=== PATIENT | female | born 1980 | race Caucasian/White ===

== ENCOUNTER → 2019-01-15 | Outpatient (CLI) | payer BC ==
--- NOTE | 2019-01-15 18:05 | MAM ---
EXAM DESCRIPTION: 3D Screening BILATERAL : Digital Mammography. CLINICAL HISTORY: 38 years Female SCREEN . No complaints or personal history of breast cancer. Remote family history of ovarian cancer. Childbirth. Premenopausal. No HRT. Lifetime risk of developing breast cancer (Tyrer-Cuzick model)(%): 7.3. COMPARISON: prior. No prior reports available. TECHNIQUE: Bilateral CC and MLO projection full-field images, digital tomosynthesis mammographic technique. Bilateral digital 2-D full-field MLO images. CAD not available for tomosynthesis or 2-D images. FINDINGS: The breast parenchymal density pattern is: Scattered areas of fibroglandular density. No skin thickening or nipple retraction. Focal asymmetry at the 9:30 position of the middle third of the left breast approximately 5 cm from the nipple. Focal asymmetry at the 9:30 position of the middle third of the right breast approximately 4 cm from the nipple. No microcalcifications associated with these findings. IMPRESSION: BI-RADS CATEGORY: 0 - INCOMPLETE- Need additional imaging evaluation. FOLLOW-UP: Recall for additional imaging: Bilateral targeted breast ultrasound of the region of interest. Optional diagnostic orthogonal tomosynthesis bilateral breast, depending on ultrasound findings.. Written communication concerning the IMPRESSION and Follow-up, will be mailed to the patient and referring health care provider. Electronically signed by: Rakan Dominguez MD 01/15/2019 6:02 PM CDT
== END ==
LOC: MAMMO 10:10
PROVIDERS: ATTEND Nurse Practitioner Family
DX: Z12.31 Encounter for screening mammogram for malignant neoplasm of breast (principal)

== ENCOUNTER → 2019-02-09 | Outpatient (CLI) | payer BC ==
--- NOTE | 2019-02-10 15:09 | US ---
EXAM DESCRIPTION: Breast,Bilateral: Ultrasound CLINICAL HISTORY: 38 yearsFemaleABNORMAL MAMMO. Bilateral regions of focal asymmetry in the breasts. COMPARISON: Bilateral screening digital breast tomosynthesis 01/15/2019. TECHNIQUE: Transcutaneous scanning of the bilateral breast utilizing olsen-scale modes. Scanning performed by the community outreach advocate ; observation by Dr. Dominguez. FINDINGS: Scanning of the right breast upper inner quadrant. Emphasis on the 9:30 position, 4 cm from the nipple. Mostly fatty echotexture with minimal fibroglandular elements. No dominant solid mass or distinct cyst. No parenchymal edema or large calcifications. No overlying skin changes. Scanning of the left breast upper inner quadrant. Emphasis on the 9:30 position, 5 cm from the nipple. Mostly fatty echotexture with minimal fibroglandular elements. No dominant solid mass or distinct cyst. No parenchymal edema or large calcifications. No overlying skin changes. IMPRESSION: Benign exam. BIRAD CATEGORY: 2 BENIGN FINDINGS. RECOMMENDATIONS: FOLLOW UP: Return to routine digital bilateral mammographic screening, one year interval from January 2019. Written communication explaining the IMPRESSION and follow-up, will be mailed to the patient and referring health care provider. The FINDINGS and the FOLLOW-UP plan were reviewed in person with the patient after the examination. According to the [employer], yearly mammograms are recommended starting at age 40 and continuing as long as a woman is in good health. Any breast change noted on a breast self-exam should be reported promptly to the patient's healthcare provider. Breast MRI is recommended for women with an approximately 20-25% or greater lifetime risk of breast cancer, including women with a strong family history of breast or ovarian cancer and women who have been treated for Hodgkin's disease. A negative mammographic report should not delay tissue diagnosis in patients with significant clinical history or physical findings. Extremely dense breast tissue limits the sensitivity of digital mammography. Electronically signed by: Rakan Dominguez MD 02/10/2019 3:06 PM CDT
== END ==
LOC: US 11:31
PROVIDERS: ATTEND Nurse Practitioner Family
DX: R92.8 Other abnormal and inconclusive findings on diagnostic imaging of breast (principal)

== ENCOUNTER 2020-01-14 | Emergency (ER) | payer BC | END 2020-01-14 09:07 | disposition short-term general hospital (02) | DX: I63.9 Cerebral infarction, unspecified (principal); H53.2 Diplopia; R42 Dizziness and giddiness; H81.4 Vertigo of central origin | CPT/HCPCS: 36415; 70450; 70496; 70498; 71045; 80053; 82550; 82553; 82948; 84484; 85025; 85610; 85730; 93005; A4216; J2060; J2997 ==